=== PATIENT | male | born 1975 | race Caucasian/White ===

== ENCOUNTER 2023-09-01 09:21 | Day surgery (SDC) | payer BC ==
[2023-08-29 09:32] VITALS: BMI 23.6
[2023-09-01] MEDS ORDERED: PROPOFOL 20 ML ONE (10:11)
[2023-09-01 11:55] VITALS: RESP 16; TEMP 97.6
[2023-09-01 12:06] VITALS: BP 120/75; PULSE 64
== END 2023-09-01 12:00 | disposition home or self-care (01) ==
LOC: FASU-ENDO 09:21
PROVIDERS: ATTEND Internal Medicine Gastroenterology
PROC: 0DJD8ZZ Inspection of Lower Intestinal Tract, Via Natural or Artificial Opening Endoscopic (ICD-10-PCS; principal; 2023-09-01 11:04)
DX: Z12.11 Encounter for screening for malignant neoplasm of colon (principal)